=== PATIENT | female | born 1950 | race Caucasian/White ===

== ENCOUNTER 2018-09-21 15:30 | Outpatient (CLI) | payer MEDICARE, OTHER ==
--- NOTE | 2018-09-21 15:55 | RAD ---
EXAM: Two views chest PROVIDED CLINICAL HISTORY: Shortness of breath COMPARISON: None FINDINGS: Cardiac silhouette and pulmonary vasculature are within normal limits. No consolidation is seen. No p leural fluid or pneumothorax apparent. Mild degenerative changes are seen in the spine. IMPRESSION: No acute cardiopulmonary process.
== END 2018-09-21 15:31 | disposition home or self-care (01) ==
LOC: BICRAD 15:30
PROVIDERS: ATTEND Internal Medicine Rheumatology
DX: R06.02 Shortness of breath (principal)
CPT/HCPCS: 71046